=== PATIENT | male | born 1945 | race Caucasian/White ===

== ENCOUNTER 2018-03-22 00:08 | Inpatient (IN) | payer OTHER, MEDICAID ==
[~2018-03-22] VITALS: Ht 175.3 cm; Wt 93.0 kg
[2018-03-22 00:15] VITALS: BP 137/81
[2018-03-22] MEDS ORDERED: SYN.1 PO (00:34)
[2018-03-22] MEDS ORDERED: ATOR20TA PO (00:34)
[2018-03-22] MEDS ORDERED: FAMO-90 PO (00:34)
[2018-03-22] MEDS ORDERED: HYDR28OI3 PO (00:34)
[2018-03-22] MEDS ORDERED: NACL 0.9% 1,000 ML IV ONE (01:17)
[2018-03-22] MEDS ORDERED: KETOROLAC 30 MG/ML VIAL IVP ONE (01:20)
[2018-03-22] MEDS ORDERED: ONDANSETRON 4 MG/2 ML VIAL IVP ONE (01:20)
[2018-03-22 01:30] LABS: APPEARANCE,URINE CLEAR (CLEAR); BILIRUBIN,URINE NEGATIVE (NEGATIVE); BLOOD, URINE NEGATIVE (NEGATIVE); COLOR,URINE YELLOW (YELLOW); LEUKOCYTE ESTERASE ,URINE NEGATIVE (NEGATIVE); NITRITE, URINE NEGATIVE (NEGATIVE); UGLUCOSE NEGATIVE (NEGATIVE)
[2018-03-22 01:37] LABS: HEMATOCRIT 42.2 % (36-52); HEMOGLOBIN 13.5 g/dL (12.0-18.0); MEAN CORPUSCULAR HEMOGLOBIN 27 pg (27-31); MEAN CORPUSCULAR HGB CONC 32 g/dL (33-37); MEAN CORPUSCULAR VOLUME 85.3 fL (80-94); PLATELET COUNT (AUTO) 154 K/uL (140-450); RED BLOOD CELL COUNT(AUTO) 4.95 MIL/uL (4.20-6.10); RED CELL DISTRIBUTION WIDTH 15.5 % (11.6-13.7); WHITE BLOOD COUNT (AUTO) 10.2 K/uL (4.8-10.8)
[2018-03-22 01:51] LABS: ALBUMIN 3.5 g/dL (3.4-5.0); CARBON DIOXIDE 26.7 mmol/L (21-32); CREATININE 1.4 mg/dL (0.7-1.3); POTASSIUM 3.7 mmol/L (3.5-5.1); TOTAL BILIRUBIN 0.5 mg/dL (0.0-1.0)
[2018-03-22 01:54] LABS: LYMPHOCYTES % (MANUAL) 14 % (20-46); MONOCYTES % (MANUAL) 0 % (5-12)
[2018-03-22] MEDS ORDERED: cefTRIAXone 1,000 MG VIAL ONE (03:00)
[2018-03-22] MEDS ORDERED: DOCUSATE SODIUM 100 MG GELCAP PO PRN (03:35)
[2018-03-22] MEDS ORDERED: ONDANSETRON 4 MG/2 ML VIAL IM/IVP PRN (03:35)
[2018-03-22] MEDS ORDERED: ACETAMINOPHEN 325 MG TAB PO PRN (03:35)
[2018-03-22] MEDS ORDERED: HYDROcodone/APAP 5/325 MG 1 TAB TAB PO PRN (03:35)
[2018-03-22 03:55] VITALS: BP 101/61
[2018-03-22 03:58] LABS: PROTHROMBIN TIME 10.1 secs (10.8-13.4)
[2018-03-22 04:05] LABS: PHOSPHORUS 2.5 mg/dL (2.5-4.9); THYROID STIMULATING HORMONE 0.02 uIU/mL (0.34-3.74)
[2018-03-22] MEDS: DEXT 5% / NACL 0.45% 1,000 ML IV SCH ×2 (04:11→13:35)
[2018-03-22] MEDS: LEVOTHYROXINE 0.1 MG TAB PO SCH (05:45)
[2018-03-22 08:00] VITALS: BP 114/61
[2018-03-22] MEDS: CALCIUM CARB/VIT-D 500 MG/200 IU 1 TAB PO SCH (09:34)
[2018-03-22] MEDS: FAMOTIDINE 20 MG TAB PO SCH ×2 (09:34→20:16)
[2018-03-22 12:00] VITALS: BP 120/70
[2018-03-22 16:00] VITALS: BP 111/65
[2018-03-22] MEDS ORDERED: HYDROCORTISONE 10 MG TAB PO SCH (18:30)
[2018-03-22 20:00] VITALS: BP 128/62
[2018-03-22] MEDS ORDERED: ATORVASTATIN 20 MG TAB PO SCH (21:00)
[2018-03-23] VITALS: BP 105/60
[2018-03-23 04:00] VITALS: BP 141/69
[2018-03-23] MEDS: LEVOTHYROXINE 0.1 MG TAB PO SCH (05:32)
[2018-03-23 07:53] LABS: BASOPHILS # (AUTO) 0.1 K/uL (0.00-0.22); BASOPHILS % (AUTO) 0.8 % (0.0-2.0); EOSINOPHILS # (AUTO) 0.2 K/uL (0-0.4); EOSINOPHILS % (AUTO) 2.2 % (0.0-4.0); HEMATOCRIT 39.9 % (36-52); HEMOGLOBIN 12.7 g/dL (12.0-18.0); LYMPHOCYTES # (AUTO) 1.8 K/uL (2.0-11.5); LYMPHOCYTES % (AUTO) 24.1 % (20.5-51.1); MEAN CORPUSCULAR HEMOGLOBIN 27 pg (27-31); MEAN CORPUSCULAR HGB CONC 32 g/dL (33-37); MEAN CORPUSCULAR VOLUME 85.9 fL (80-94); MONOCYTES # (AUTO) 0.6 K/uL (0.8-1.0); MONOCYTES % (AUTO) 7.6 % (1.7-9.3); NEUTROPHILS # (AUTO) 4.8 K/uL (1.8-7.7); NEUTROPHILS % (AUTO) 65.3 % (42.2-75.2); PLATELET COUNT (AUTO) 152 K/uL (140-450); RED BLOOD CELL COUNT(AUTO) 4.65 MIL/uL (4.20-6.10); WHITE BLOOD COUNT (AUTO) 7.4 K/uL (4.8-10.8)
[2018-03-23 08:00] VITALS: BP 155/75
[2018-03-23 08:06] LABS: ANION GAP 10.5 (8-16); CREATININE 1.4 mg/dL (0.7-1.3); POTASSIUM 4.5 mmol/L (3.5-5.1)
[2018-03-23 08:07] LABS: MAGNESIUM 2.2 mg/dL (1.8-2.4); PHOSPHORUS 3.7 mg/dL (2.5-4.9)
[2018-03-23] MEDS ORDERED: NITR100C7 PO (08:34)
[2018-03-23] MEDS: FAMOTIDINE 20 MG TAB PO SCH (08:59)
[2018-03-23] MEDS: CALCIUM CARB/VIT-D 500 MG/200 IU 1 TAB PO SCH (08:59)
[2018-03-23] MEDS ORDERED: HYDROCORTISONE 10 MG TAB PO SCH (09:00)
== END 2018-03-23 10:40 | disposition home or self-care (01) | DRG 689 ==
LOC: MED 00:08 → MTU 03:39
PROVIDERS: ADMIT General Practice; ATTEND General Practice
DX: N30.90 Cystitis, unspecified without hematuria (principal); N17.0 Acute kidney failure with tubular necrosis; E87.2 Acidosis; E83.51 Hypocalcemia; E86.0 Dehydration; N40.0 Benign prostatic hyperplasia without lower urinary tract symptoms; D49.9 Neoplasm of unspecified behavior of unspecified site; E66.9 Obesity, unspecified; K52.9 Noninfective gastroenteritis and colitis, unspecified; E03.9 Hypothyroidism, unspecified; K21.9 Gastro-esophageal reflux disease without esophagitis; K80.20 Calculus of gallbladder without cholecystitis without obstruction; I25.2 Old myocardial infarction; Z68.29 Body mass index [BMI] 29.0-29.9, adult; Z79.899 Other long term (current) drug therapy
CPT/HCPCS: 36415; 71045; 80048; 80053; 81003; 82150; 83036; 83605; 83690; 83735; 83880; 84100; 84439; 84443; 84484; 85025; 85610; 85730; 87040; 87081; 96361; 96365; 96375; 99285; J0696; J1885; J2405; J7030; J7060; Q0092